=== PATIENT | female | born 1950 | race Caucasian/White ===

== ENCOUNTER 2019-12-25 08:13 | Observation (INO) | payer MEDICARE, OTHER ==
[~2019-12-25] VITALS: Ht 152.4 cm; Wt 51.4 kg
--- NOTE | 2019-12-25 08:15 | NUR ---
JOAN ALERT CALLED WHILE IN WAITING ROOM, PATIENT TAKEN TO ROOM 10. MD AT BEDSIDE TO ASSESS.
--- NOTE | 2019-12-25 08:18 | NUR ---
PATIENT TO CT SCAN IN STABLE CONDITION.
--- NOTE | 2019-12-25 08:25 | NUR ---
COMPLETED TELENEUROLOGY WITH PT AND DR MARY WHILE IN CT. MD RECOMMENDS NO CTA AND WILL CALL FINDINGS AND PLAN TO EDP.
[2019-12-25 08:35] LABS: HEMATOCRIT 34.9 % (37.0-47.0); HEMOGLOBIN 10.9 g/dl (12.0-16.0); IMMATURE GRANULOCYTES 0.3 % (0.0-5.0); MEAN CELL VOLUME 84.7 fL CALC (80.0-100.0); MEAN CORPUSCULAR HGB 26.5 pG CALC (26.0-32.0); MEAN CORPUSCULAR HGB CONC 31.2 g/dL CAL (32.0-36.0); NEUT# 5.26 thou/uL (2.00-7.15); RED BLOOD COUNT 4.12 mill/uL (4.20-5.60); RED CELL DISTRI WIDTH 12.2 % (11.5-15.5)
[2019-12-25 08:39] LABS: GFR > 60 ML/MIN (>=60 (CALC)); GFR FOR AFR.AMER. > 60 ML/MIN (>=60 (CALC))
--- NOTE | 2019-12-25 08:40 | NUR ---
RETURNED WITH PT FROM CT, PT AWAKE AND ALERT IN NO DISTRESS. PT STATES HER SX HAVE RESOLVED. MAEW. NO DEFICITS NOTED. SPOUSE AT BEDSIDE
[2019-12-25 08:57] LABS: INTERNATIONAL NORMALIZED RATIO 1.1 RATIO (0.7-1.3); PROTHROMBIN TIME 10.7 SECONDS (9.0-12.5)
[2019-12-25] MEDS ORDERED: SOD CHLORIDE1 G2 PO ×2 (09:15→09:18)
[2019-12-25 09:17] LABS: ALBUMIN 3.9 g/dL (3.2-5.0); ALKALINE PHOSPHATASE 79 u/l (38-126); ANION GAP 8 (6-22 (CALC)); BILIRUBIN, TOTAL 0.5 mg/dL (0.0-1.4); BUN 17 mg/dL (8-23); BUN/CREATININE RATIO 26 (12-20 (CALC)); CARBON DIOXIDE 34 mmol/l (22-30); CHLORIDE 99 mmol/l (95-108); CREATININE 0.6 mg/dL (0.5-1.0); GFR > 60 ML/MIN (>=60 (CALC)); GFR FOR AFR.AMER. > 60 ML/MIN (>=60 (CALC)); POTASSIUM 2.8 mmol/l (3.5-5.1); SGOT/AST 25 u/l (9-36); SODIUM 137 mmol/l (137-146); TOTAL PROTEIN 6.4 g/dL (6.3-8.2)
[2019-12-25] MEDS ORDERED: POT CHLORIDE20 ME3 PO ×2 (09:18→09:19)
[2019-12-25] MEDS ORDERED: FLORINEF0.1 MG PO (09:21)
--- NOTE | 2019-12-25 09:40 | NUR ---
AMBULATED PT TO BATHROOM WITH STEADY GAIT AND NO DEFICITS NOTED. URINE OBTAINED FOR UA. DENIES DIZZINESS OR HEADACHE. PT ALERT AND ORIENTED X4,
[2019-12-25 10:35] LABS: URINE BILIRUBIN - DIPSTICK NEGATIVE (NEGATIVE); URINE BLOOD DIPSTICK NEGATIVE (NEGATIVE); URINE COLOR YELLOW; URINE GLUCOSE - DIPSTICK NEGATIVE (NEGATIVE); URINE KETONE NEGATIVE (NEGATIVE); URINE LEUK ESTERASE NEGATIVE (NEGATIVE); URINE NITRITE - DIPSTICK NEGATIVE (Negative); URINE PH 7.5 (4.5-8.0); URINE PROTEIN - DIPSTICK NEGATIVE (NEG-TRACE); URINE UROBILINOGEN - DIPSTICK 0.2 E.U./dL (0.2)
--- NOTE | 2019-12-25 10:44 | NUR ---
PT UPDATED ON WAIT TIME AND POC FOR TRANSFER TO [facility]. NO DEFICITS NOTED . PT DENIES HEADACHE,DIZZINESS OR VISUAL CHANGES.
--- NOTE | 2019-12-25 11:05 | NUR ---
CALLED REPORT TO DEEJAY OHARA MS2
[2019-12-25 11:15] VITALS: BP 175/93
--- NOTE | 2019-12-25 11:20 | NUR ---
PT TRANSPORTED TO [facility] VIA ON CONTINUOUS IV. PT DENIES COMPLAINTS AND AMBULATES FROM STRETCHER TO BATHROOM IN MS ROOM WITHOUT DIFFICULTY. AT BEDSIDE. ALL BELONGINGS SENT WITH PT
--- NOTE | 2019-12-25 11:20 | NUR ---
REPORT RECEIVED FROM SAROJ IN ED, PT ARRIVED UN UNIT VIA STRETCHER, AMBULATED TO BR THEN TO BED AND SETTLED. ALERT AND ORIENTED X 3, DENIES PAIN/DISCOMFORT, ORIENTED TO ROOM AND CALL GAO, EDUCATED ON FALL PRECAUTIONS AND HAND WASHING, STATED UNDERSTANDING, SPOUSE AT BEDSIDE.
--- NOTE | 2019-12-25 14:38 | NUR ---
LEAVING UNIT AT THIS TIME TO MRI, TRANSPORTED VIA W/C BY STAFF.
--- NOTE | 2019-12-25 16:50 | NUR ---
RETURNED TO UNIT AND SETTLED IN BED, ALL NEEDS ADDRESSED.
[2019-12-25 18:49] VITALS: BP 171/69
--- NOTE | 2019-12-25 20:01 | NUR ---
RECIEVED REPORT FROM MEDARDO OHARA. PT SLEEPING IN SEMI FOLWERS POSITION UPON ENTERING ROOM.RESPIRATIONS ARE EVEN AND UNLABORED ON ROOM AIR. IVF RUNNING WITH EASE PER ORDER, SITE APPEARS HEALTHY AND PATENT. PT REPOSITIONED FOR COMFORT. PT IS NON VERBAL AT THIS TIME. TELEMENTRY IN PLACE.ALL SAFETY PRECAUTIONS ARE IN PLACE WITH CALL LIGHT IN REACH. WILL CONTINUE TO MONITOR.
--- NOTE | 2019-12-25 20:01 | NUR ---
ECIEVED REPORT FROM DEEJAY OHARA. PT RESTING IN SEMI FOLWERS POSITION UPON NTERING ROOM. ASSESSMENT AND VITALS COMPLETE. PT ALERT AND ORIENTED; DENIES AIN. STEADY GAIT OBSERVED. RESPIRATIONS ARE EVEN AND UNLABORED ON ROOM AIR. VF RUNNING WITH EASE PER ORDER, SITE APPEARS HEALTHY AND PATENT. PT EPOSITIONED FOR COMFORT. PT NER. TELEMENTRY IN PLACE.ALL SAFETY RECAUTIONS ARE IN PLACE WITH CALL LIGHT IN REACH. WILL CONTINUE TO MONITOR.
--- NOTE | 2019-12-25 20:01 | NUR ---
RECIEVED REPORT FROM DEEJAY OHARA. PT RESTING IN SEMI FOLWERS POSITION UPON ENTERING ROOM. ASSESSMENT AND VITALS COMPLETE. PT ALERT AND ORIENTED; DENIES PAIN. STEADY GAIT OBSERVED. RESPIRATIONS ARE EVEN AND UNLABORED ON ROOM AIR. IVF RUNNING WITH EASE PER ORDER, SITE APPEARS HEALTHY AND PATENT. PT REPOSITIONED FOR COMFORT. PT NER. TELEMENTRY IN PLACE.ALL SAFETY PRECAUTIONS ARE IN PLACE WITH CALL LIGHT IN REACH. WILL CONTINUE TO MONITOR.
[2019-12-25 21:20] VITALS: BP 119/68
[2019-12-26] VITALS: BP 138/78
--- NOTE | 2019-12-26 00:01 | NUR ---
PT SLEEPING QUIETLY. NO DISCOMFORT OBSERVED WILL CONTINUE TO MONITOR.
--- NOTE | 2019-12-26 03:33 | NUR ---
FAMILY AND DIVORCE LEGAL ASSISTANT ASSISTED PT TO RESTROOM AND BACK TO BED. PT REQUESTED TYLENOL FOR HEADACHE, NEURO'S APPEAR INTACT. PT MEDICATED FOR PAIN 4/10 DESCRIBED HEADACHE. IV FLUIDS REPLENISHED AT THIS TIME. PT DENIES ANY OTHER NEEDS, CALL LIGHT W/IN REACH.
[2019-12-26 04:00] VITALS: BP 139/81
[2019-12-26 05:24] LABS: HEMATOCRIT 31.9 % (37.0-47.0); HEMOGLOBIN 10.3 g/dl (12.0-16.0); IMMATURE GRANULOCYTES 0.5 % (0.0-5.0); MEAN CELL VOLUME 85.3 fL CALC (80.0-100.0); MEAN CORPUSCULAR HGB 27.5 pG CALC (26.0-32.0); MEAN CORPUSCULAR HGB CONC 32.3 g/dL CAL (32.0-36.0); NEUT# 4.24 thou/uL (2.00-7.15); RED BLOOD COUNT 3.74 mill/uL (4.20-5.60); RED CELL DISTRI WIDTH 12.2 % (11.5-15.5)
[2019-12-26 05:45] LABS: ALBUMIN 3.4 g/dL (3.2-5.0); ALKALINE PHOSPHATASE 71 u/l (38-126); BILIRUBIN, TOTAL 0.5 mg/dL (0.0-1.4); BUN 11 mg/dL (8-23); BUN/CREATININE RATIO 21 (12-20 (CALC)); CARBON DIOXIDE 30 mmol/l (22-30); CHLORIDE 103 mmol/l (95-108); CREATININE 0.5 mg/dL (0.5-1.0); GFR > 60 ML/MIN (>=60 (CALC)); GFR FOR AFR.AMER. > 60 ML/MIN (>=60 (CALC)); MAGNESIUM 1.9 mg/dL (1.6-2.3); SGOT/AST 24 u/l (9-36); SODIUM 138 mmol/l (137-146); TOTAL PROTEIN 5.9 g/dL (6.3-8.2)
[2019-12-26 05:49] LABS: ANION GAP 7 (6-22 (CALC)); POTASSIUM 2.4 mmol/l (3.5-5.1)
[2019-12-26 07:27] VITALS: BP 116/67
--- NOTE | 2019-12-26 07:35 | NUR ---
SHIFT CHANGE REPORT, PT AWAKE ALERT AND ORIENTED RESTING IN BED, REPORTED SHE HAD A HEADACHE EARLY THIS AM AND WAS GIVEN TYLENOL WHICH COMPLETELY RELIEVED IT. TELE MONITOR IN PLACE, CALL GAO IN REACH AND BED IN LOWEST POSITION.
[2019-12-26 11:46] VITALS: BP 149/83
--- NOTE | 2019-12-26 12:13 | NUR ---
ASSISTED TO BR AND BACK TO BED, ADVISED TO CHANGE POSITIONS SLOWLY AND ACCERTAIN NOT DIZZI BEFORE STEPPING OFF, DEMONSTRATED UNDERSTANDING.
--- NOTE | 2019-12-26 14:35 | NUR ---
Physical Medicine: Patient is seen for rehab screen. She has no deficits at time of screen. I did advise her to back off on her home walk program and restart slowly over the next couple of weeks. She has no difficulty with UE coordination or swallowing so no need for OT or ST consultation at this time
--- NOTE | 2019-12-26 15:15 | NUR ---
INFORMED OF PROCEDURE AND STATED UNDERSTANDING, TRANSPORTED OFF UNIT BY STAFF VIA W/C AND BACK TO UNIT, SETTLED IN BED.
[2019-12-26] MEDS ORDERED: ASPIRIN ADULT325 MG PO (15:55)
--- NOTE | 2019-12-26 18:12 | NUR ---
Discharge instructions given. Patient verbalizes understanding of same. Discharged in stable condition via Wheelchair to Home with spouse. All belongings sent with pt.
== END 2019-12-26 16:50 | disposition home or self-care (01) ==
LOC: ED 08:13 → ED-I 08:41 → ED 08:41 → ED-I 08:42 → ED 09:44 → MS2 09:45
PROVIDERS: Family Medicine; Nurse Practitioner; ADMIT Internal Medicine; ATTEND Internal Medicine
DX: G45.9 Transient cerebral ischemic attack, unspecified (principal); E87.6 Hypokalemia; I10 Essential (primary) hypertension; R94.31 Abnormal electrocardiogram [ECG] [EKG]; M79.605 Pain in left leg; Z20.828 Contact with and (suspected) exposure to other viral communicable diseases; B18.2 Chronic viral hepatitis C; Z87.891 Personal history of nicotine dependence; M79.89 Other specified soft tissue disorders
CPT/HCPCS: G0378; J1650; J3475